=== PATIENT | male | born 1980 | race Caucasian/White ===

== ENCOUNTER 2017-04-20 02:51 | Emergency (ER) | payer OTHER ==
[2017-04-20 03:12] VITALS: BP 125/87; PULSE 80; TEMP 98.7; BMI 28.2
--- NOTE | 2017-04-20 03:48 | PDOC ---
History of Present Illness - General History Source: Patient Exam Limitations: No Limitations - History of Present Illness Initial Comments: 04/20/17 04:14 The patient is a 37-year-old male working for [employer], with no significant past medical history, who presents to the ED with left wrist pain. Patient states that he was wrestling a man and developed the pain after the incident. Pt states that his wrist hurts most when he extends it and with compression. The pain radiates down the dorsum of his wrist and over to his thumb. The patient denies having any other injuries or complaints. <Emily Jarrett - Last Filed: 04/20/17 04:35> - General History Source: Patient <Dany Noel - Last Filed: 04/23/17 20:23> - General Chief Complaint: Injury Stated Complaint: INJURY Time Seen by Provider: 04/20/17 03:47 Past History <Emily Jarrett - Last Filed: 04/20/17 04:35> - Past Medical History Suicide Attempt (Hx): No - Immunization History Td Vaccination: Yes Immunization Up to Date: Yes - Psycho/Social/Smoking Cessation Hx Anxiety: No Suicidal Ideation: No Smoking Status: No Smoking History: Never smoked Have you smoked in the past 12 months: No Number of Cigarettes Smoked Daily: 0 Information on smoking cessation initiated: No Hx Alcohol Use: No Drug/Substance Use Hx: No Substance Use Type: None <Dany Noel - Last Filed: 04/23/17 20:23> - Past Medical History Allergies/Adverse Reactions: Allergies Allergy/AdvReac Type Severity Reaction Status Date / Time No Known Allergies Allergy Verified 04/20/17 03:10 Home Medications: Ambulatory Orders No Home Medications 0 dose .ROUTE MTDICT 11/04/12 Review of Systems - Review of Systems Able to Perform ROS?: Yes Comments:: 04/20/17 04:14 Absent: fever, no chills, no fatigue EYES: Absent: visual changes ENT: Absent: ear pain, no sore throat CARDIOVASCULAR: Absent: chest pain, no palpitations RESPIRATORY: Absent: cough, no SOB GI: Absent: abdominal pain, no nausea, no vomiting, no constipation, no diarrhea GENITOURINARY: Absent: dysuria, no frequency, no hematuria MUSKULOSKELETAL: Present: left wrist pain Absent: back pain, no arthralgia SKIN: Absent: rash NEURO: Absent: headache <Emily Jarrett - Last Filed: 04/20/17 04:35> *Physical Exam - Vital Signs Last Vital Signs Temp Pulse Resp BP Pulse Ox 98.7 F 80 14 125/87 99 04/20/17 03:11 04/20/17 03:11 04/20/17 03:11 04/20/17 03:11 04/20/17 03:11 - Physical Exam Comments: 04/20/17 04:15 GENERAL: Well-appearing, well-nourished. No apparent distress. HEENT: Normocephalic, atraumatic. PERRL, EOM intact. CARDIOVASCULAR: Normal S1, S2. Regular rate and rhythm. PULMONARY: Clear to auscultation bilaterally. ABDOMEN: Soft, non-distended, non-tender. EXTREMITIES: Good range of motion of wrist. +Minimal tenderness of left wrist. SKIN: Warm, dry. No rash NEUROLOGICAL: No focal neurological deficits. <Emily Jarrett - Last Filed: 04/20/17 04:35> - Vital Signs Last Vital Signs Temp Pulse Resp BP Pulse Ox 98.7 F 80 14 125/87 99 04/20/17 03:11 04/20/17 03:11 04/20/17 03:11 04/20/17 03:11 04/20/17 03:11 <Dany Noel - Last Filed: 04/23/17 20:23> Medical Decision Making - Medical Decision Making 04/23/17 20:22 Dr. Noel: The scribe's documentation has been prepared under my direction and personally reviewed by me in its entirery. I confirm that the note above accurately reflects all work, treatment, procedures, and medical decision making performed by me. <Dany Noel - Last Filed: 04/23/17 20:23> *DC/Admit/Observation/Transfer - Attestations Scribe Attestion: 04/20/17 04:15 Documentation prepared by Emily Jarrett, acting as medical care administrator for Dany Noel MD. <Emily Jarrett - Last Filed: 04/20/17 04:35> - Discharge Dispostion Admit: No <Dany Noel - Last Filed: 06/26/17 20:23> Diagnosis at time of Disposition: Left wrist sprain Qualifiers: Encounter type: initial encounter Qualified Code(s): S63.502A - Unspecified sprain of left wrist, initial encounter - Discharge Dispostion Disposition: HOME - Patient Instructions Printed Discharge Instructions: DI for Wrist Sprain
== END 2017-04-20 04:15 | disposition home or self-care (01) ==
LOC: JER 02:51
DX: S63.592A Other specified sprain of left wrist, initial encounter (principal); Y35.811A Legal intervention involving manhandling, law enforcement official injured, initial encounter; Y93.89 Activity, other specified; Y92.89 Other specified places as the place of occurrence of the external cause; Y99.0 Civilian activity done for income or pay
CPT/HCPCS: 73110-TC-LT; 73130-TC-LT; 99282-25

== ENCOUNTER 2018-07-13 21:40 | Emergency (ER) | payer OTHER ==
[2018-07-13 21:55] VITALS: BP 130/74; PULSE 75; TEMP 98.1; BMI 28.2
--- NOTE | 2018-07-13 22:15 | PDOC ---
History of Present Illness - General Chief Complaint: Injury Stated Complaint: HAND INJURY Time Seen by Provider: 07/13/18 22:05 - History of Present Illness Initial Comments: 38-year-old male without comorbidities presents for evaluation of an abrasion on his left forearm. He states he was running after suspect he tackled him and scraped his forearm on a tree branch. He is current on tetanus. 07/13/18 22:12 Past History - Past Medical History Allergies/Adverse Reactions: Allergies Allergy/AdvReac Type Severity Reaction Status Date / Time No Known Allergies Allergy Verified 07/13/18 21:53 Home Medications: Ambulatory Orders No Home Medications 0 dose .ROUTE UTDICT 11/04/12 COPD: No - Immunization History Td Vaccination: Yes Immunization Up to Date: Yes - Suicide/Smoking/Psychosocial Hx Smoking Status: No Smoking History: Never smoked Have you smoked in the past 12 months: No Number of Cigarettes Smoked Daily: 0 Hx Alcohol Use: No Drug/Substance Use Hx: No Substance Use Type: None Review of Systems - Review of Systems Integumentary: Yes: See HPI All Other Systems: Reviewed and Negative *Physical Exam - Vital Signs Last Vital Signs Temp Pulse Resp BP Pulse Ox 98.1 F 75 18 130/74 98 07/13/18 21:54 07/13/18 21:54 07/13/18 21:54 07/13/18 21:54 07/13/18 21:54 - Physical Exam Comments: Or 3 superficial abrasions on the left forearm about the ulnar aspect. There is full range of motion which is nonpainful of the wrist elbow and forearm in all planes. There is normal surrounding skin color and temperature. There are no gross sensorimotor deficits. He is neurovascularly intact. 07/13/18 22:13 Medical Decision Making - Medical Decision Making Superficial abrasions can be treated with soap and water. The patient's current on tetanus. I've advised him on signs and symptoms of infection and to return to the ER should he experience any of these. 07/13/18 22:13 *DC/Admit/Observation/Transfer Diagnosis at time of Disposition: Abrasion forearm - Discharge Dispostion Disposition: HOME Condition at time of disposition: Stable Decision to Admit order: No - Referrals Referrals: Sujit Bradley MD [Staff Physician] - - Patient Instructions Printed Discharge Instructions: DI for Abrasion Additional Instructions: Return to the emergency room should he experience any pain redness swelling or drainage from the wound. In the meantime keep it clean with soap and water and left open to air. If any pain you can follow-up with orthopedic surgery in 2-3 days for further evaluation and treatment options - Post Discharge Activity
== END 2018-07-13 22:20 | disposition home or self-care (01) ==
LOC: JERFT 21:40
DX: S50.812A Abrasion of left forearm, initial encounter (principal); Y35.811A Legal intervention involving manhandling, law enforcement official injured, initial encounter; W18.39XA Other fall on same level, initial encounter; Y93.89 Activity, other specified; Y92.89 Other specified places as the place of occurrence of the external cause; Y99.0 Civilian activity done for income or pay
CPT/HCPCS: 99281-25

== ENCOUNTER 2018-10-05 00:58 | Emergency (ER) | payer OTHER ==
--- NOTE | 2018-10-05 01:04 | PDOC ---
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 Patient states while carrying a patient down a flight of stairs, he scraped it against the wall while wearing gloves. Last tetanus within 5 years. Patient denies any pain. Patient adamantly refuses prophylaxis hepatitis and HIV medication. Past History - Past Medical History Allergies/Adverse Reactions: Allergies Allergy/AdvReac Type Severity Reaction Status Date / Time No Known Allergies Allergy Verified 07/13/18 21:53 Home Medications: Ambulatory Orders No Home Medications 0 dose .ROUTE UTDICT 11/04/12 COPD: No - Immunization History Td Vaccination: Yes Immunization Up to Date: Yes - Suicide/Smoking/Psychosocial Hx Smoking Status: No Smoking History: Never smoked Have you smoked in the past 12 months: No Number of Cigarettes Smoked Daily: 0 Hx Alcohol Use: No Drug/Substance Use Hx: No Substance Use Type: None Review of Systems - Review of Systems Able to Perform ROS?: Yes Comments:: 10/05/18 02:02 CONSTITUTIONAL: Absent: fever, chills, diaphoresis, generalized weakness, malaise, loss of appetite MUSCULOSKELETAL: Right fifth dorsal PIP superficial abrasion 1cm Left dorsal third and fourth MCP superficial abrasion approximately 1 cm Bilateral hands: Full range of motion, capillary refill less than 2 seconds Absent: myalgia, arthralgia, joint swelling SKIN: Absent: rash, itching, pallor Procedure: Right fifth dorsal PIP superficial abrasion 1 cm Left dorsal third and fourth MCP superficial abrasion approximately 1 cm Cleansed with 4 x 4 normal saline Bacitracin/Band-Aid Is the patient limited Estonian proficient: No *Physical Exam - Physical Exam Comments: 10/05/18 02:02 GENERAL: Well developed, well nourished. Awake and alert. No acute distress. HEENT: Normocephalic, atraumatic. PERRLA, EOMI. No conjunctival pallor. Sclera are non- icteric. Moist mucous membranes. Oropharynx is clear. NECK: Supple. Full ROM. No JVD. Carotid pulses 2+ and symmetric, without bruits. No thyromegaly. No lymphadenopathy. CARDIOVASCULAR: Regular rate and rhythm. No murmurs, rubs, or gallops. Distal pulses are 2+ and symmetric. PULMONARY: No evidence of respiratory distress. Lungs clear to auscultation bilaterally. No wheezing, rales or rhonchi. ABDOMINAL: Soft. Non-tender. Non-distended. No rebound or guarding. No organomegaly. Normoactive bowel sounds. MUSCULOSKELETAL Normal range of motion at all joints. No bony deformities or tenderness. No CVA tenderness. EXTREMITIES: No cyanosis. No clubbing. No edema. No calf tenderness. SKIN: Warm and dry. Normal capillary refill. No rashes. No jaundice. NEUROLOGICAL: Alert, awake, appropriate. Cranial nerves 2-12 intact. No deficits to light touch and temperature in face, upper extremities and lower extremities. No motor deficits in the in face, upper extremities and lower extremities. Normoreflexic in the upper and lower extremities. Normal speech. Toes are down- going bilaterally. Gait is normal without ataxia. PSYCHIATRIC: Cooperative. Good eye contact. Appropriate mood and affect. *DC/Admit/Observation/Transfer Diagnosis at time of Disposition: Abrasion - Discharge Dispostion Disposition: HOME Condition at time of disposition: Stable Decision to Admit order: No - Referrals Referrals: Zana Stout MD [Staff Physician] - - Patient Instructions Printed Discharge Instructions: DI for Abrasion Additional Instructions: Wash with soap and water Bacitracin tylenol alternate with motrin as needed for pain Return to the ER for signs of infections; drainage/redness/swelling - Post Discharge Activity
[2018-10-05] MEDS ORDERED: BACITRACIN 0.9 GM PACKET ONE (01:09)
[2018-10-05 01:15] VITALS: BP 126/72; PULSE 78; TEMP 98.8; BMI 26.9
== END 2018-10-05 02:22 | disposition home or self-care (01) ==
LOC: JER 00:58
DX: S60.512A Abrasion of left hand, initial encounter (principal); S60.416A Abrasion of right little finger, initial encounter; W22.09XA Striking against other stationary object, initial encounter; Y93.F9 Activity, other caregiving; Y92.89 Other specified places as the place of occurrence of the external cause; Y99.0 Civilian activity done for income or pay
CPT/HCPCS: 99281-25

== ENCOUNTER 2021-01-08 18:30 | Emergency (ER) | payer OTHER ==
[2021-01-08 18:39] VITALS: BP 120/86; PULSE 78; TEMP 98.7; BMI 28.8
== END 2021-01-08 19:21 | disposition home or self-care (01) ==
LOC: FER 18:30
DX: M79.642 Pain in left hand (principal); Z00.00 Encounter for general adult medical examination without abnormal findings
CPT/HCPCS: 99282-25

== ENCOUNTER 2022-09-07 07:21 | Emergency (ER) | payer OTHER ==
[2022-09-07 07:35] VITALS: BP 126/90; PULSE 77; RESP 18; TEMP 98.5; BMI 30.2
[2022-09-07] MEDS ORDERED: IBUPROFEN 600 MG TABLET (FP) PO ONE ×2 (07:36→07:47)
== END 2022-09-07 08:19 | disposition home or self-care (01) ==
LOC: FER 07:21
DX: S46.912A Strain of unspecified muscle, fascia and tendon at shoulder and upper arm level, left arm, initial encounter (principal); Y99.8 Other external cause status
CPT/HCPCS: 99283-25

== ENCOUNTER 2022-09-09 14:50 | Emergency (ER) | payer OTHER ==
[2022-09-09 15:08] VITALS: BP 133/92; PULSE 83; RESP 20; TEMP 98; BMI 30.2
== END 2022-09-09 15:48 | disposition home or self-care (01) ==
LOC: FER 14:50
DX: M25.512 Pain in left shoulder (principal)
CPT/HCPCS: 99281-25

== ENCOUNTER 2024-08-27 06:45 | Emergency (ER) | payer OTHER ==
[2024-08-27 06:51] VITALS: BP 117/82; PULSE 56; RESP 18; TEMP 97.3; BMI 30.8
[2024-08-27] MEDS ORDERED: HIV POST EXPOSURE PROPHYLAXIS KIT PO ONE (07:44)
[2024-08-27] MEDS: HIV POST EXPOSURE PROPHYLAXIS KIT PO ONE (08:10)
[2024-08-27 08:23] LABS: HEMATOCRIT 45.8 % (35.4-49); HEMOGLOBIN 15.6 G/dL (11.7-16.9); MCH 30.7 pg (25.7-33.7); MEAN CELL VOLUME 90.1 fl (80-96); MEAN PLT VOLUME 7.4 fl (7.5-11.1); PLATELET COUNT 213.7 10^3/uL (134-434); RBC 5.08 10^6/uL (4.00-5.60); RDW 13.1 % (11.9-15.9); WHITE BLOOD COUNT 10.8 10^3/uL (4.0-10.8)
[2024-08-27 08:34] LABS: ALBUMIN 4.8 g/dl (3.4-5.0); BILIRUBIN,TOTAL 0.6 mg/dl (0.2-1); CREATININE 1.1 mg/dl (0.6-1.3); PHOSPHOROUS 4.1 (2.5-4.9); POTASSIUM 4.2 mmol/L (3.5-5.1); TOT PROT 7.3 g/dl (6.4-8.2)
[2024-08-27 08:52] LABS: PLATELET ESTIMATE ADEQUATE
[2024-08-27 11:55] LABS: HIV INTERPRETATION NEGATIVE (NEGATIVE)
== END 2024-08-27 08:19 | disposition home or self-care (01) ==
LOC: FER 06:45
DX: Z77.21 Contact with and (suspected) exposure to potentially hazardous body fluids (principal)
CPT/HCPCS: 36415; 80053; 82465; 82977; 84100; 85025; 86704; 86803; 87340; 87389; 87517; 99283-25